=== PATIENT | female | born 1980 | race Hispanic/Latino ===

== ENCOUNTER → 2018-02-21 | Day surgery (SDC) | payer OTHER ==
[2018-02-12 10:33] LABS: BASOPHILS # (AUTO) 0.1 (0.0-0.1); EOSINOPHILS # (AUTO) 0.2 (0.0-0.4); EOSINOPHILS % 2.3 % (0.0-6.0); HEMATOCRIT 42.9 % (34.2-44.1); LYMPHOCYTES # (AUTO) 2.4 (1.0-3.2); LYMPHOCYTES % 33.9 % (18.0-39.1); MEAN CORPUSCULAR HEMOGLOBIN 30.6 pg (28-32); MEAN CORPUSCULAR VOLUME 87.6 fL (81-99); MONOCYTES # (AUTO) 0.7 (0.2-0.8); MONOCYTES % 9.1 % (4.4-11.3); NEUTROPHILS # (AUTO) 3.8 (2.1-6.9); NEUTROPHILS % 53.4 % (38.7-80.0); PLATELET COUNT 296 x10e3/uL (140-360)
[~2018-02-21] MED LIST: ACETAMINOPHEN/CODEINE 300MG - 30MG TAB ONE; BUPIVACAINE 0.25%/EPI 30ML SDV INJ ONE; DEXAMETHASONE SOD PHOS INJ 4 MG/ML VIAL ONE; EPHEDRINE SULFATE INJ 50 MG/10 ML SYR ONE; FENTANYL CITRATE/PF 100MCG/2 ML INJ ONE; GLYCOPYRROLATE INJ 1MG/ 5 ML SYR ONE; KETOROLAC TROMETHAMINE 30 MG/ML VIAL ONE; LEVOTHYROXINE75 MCG PO; LIDOCAINE HCL 2% LOCAL INJ 5 ML SDV VIAL INJ ONE; MIDAZOLAM HCL 2 MG/2 ML VIAL ONE; NEOSTIGMINE 5 MG/5ML SYR ONE; ONDANSETRON HCL INJ 2 MG/ML VIAL ONE; PHENYLEPHRINE HCL 1% 10 MG/ML VIAL ONE; PROPOFOL IV EMULSION 10 MG/ML 20 ML VIAL ONE; ROCURONIUM BROMIDE 10 MG/ML 5ML VIAL ONE; SEVOFLURANE INHAL SOLN 250 ML PEN BTL ONE; ZESTORETIC 20-1 EACH
--- NOTE | 2018-02-21 15:03 | Operative Report ---
DATE OF PROCEDURE: February 21, 2018 PREOPERATIVE DIAGNOSIS: Pelvic pain of right ovarian cyst. POSTOPERATIVE DIAGNOSIS: Pelvic pain of right ovarian cyst. OPERATIONS PERFORMED: 1. Laparoscopy. 2. Ablation of endometriosis. 3. Excision of right ovarian cyst. COMPLICATIONS: None. ESTIMATED BLOOD LOSS: Minimal. PROCEDURE: The patient was taken to the OR. General anesthesia was placed. She was prepped and draped in the normal sterile fashion and placed in the dorsal lithotomy position. After examination under anesthesia, a Hulka self-retaining uterine manipulator was passed through the cervix into the uterine cavity. Two Allis clamps were applied at the umbilicus. An infraumbilical skin incision was made with a scalpel, and a 10-mm bladeless trocar and cannula with the scope inside was passed through the abdominal wall into the abdominal cavity under direct visualization. Trocar was removed, and the abdomen was inflated with carbon dioxide gas and patient was placed in Trendelenburg position and the scope was slid through the sleeve into the abdominal cavity. Good visualization of the pelvis showed normal uterus, left tube and ovary. Right ovary showed a 4 or 5 cm ovarian cyst. Endometriosis was scattered throughout the posterior leaflet of the broad ligament, and 2 other ports were made in the right side of the abdomen after making a 5-mm skin incision with the scalpel, and a 5-mm bladeless trocar and cannula was introduced inside the abdominal cavity under direct visualization. The trocar was removed with a grasper, and with good visualization and the ball-tipped cautery the ablation of endometriosis was performed. The right ovarian cyst was excised using the LigaSure instrument. The bed of the ovary on the right side was cauterized with the ball-tipped cautery to achieve hemostasis. Suction irrigation of the peritoneal cavity with warm saline was performed. Instruments were removed from the abdomen. The abdomen was deflated. The rectus fascia at the umbilicus was reapproximated using Vicryl 0, and the skin was closed with Dermabond. Patient tolerated the procedure well. Lap, instrument and needle count was correct x2 at the end of the procedure. Job#: [id number] EV
--- OUTSIDE RECORDS SUMMARY | 2018-04-12 01:59 | XMS REPORT | Summary of Care ---
Author Author REMIGIO CARDONA M.D. 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 Active Levothyroxine Sodium TABS * Refills: 0 R.N. Active Allergies and Adverse Reactions Name Dates Details No Known Drug Allergies (Allergy) Status: Active Past Medical History Name Dates Details History of hypertension (V12.59, Z86.79) Status: Resolved History of thyroid disease (V12.29, Z86.39) Status: Resolved Procedures Procedure Dates Details [QL] THYROID PANEL Date: 14-Nov-2017 History of Bladder surgery Completed Immunization Name Dates Details Immunizations not documented Family History Name Dates Details No significant family history Comments: Family History Status: Active Social History Name Dates Details - Status: Name Dates Details Never smoker Vital Signs Date Test Result Details :07 BP Systolic 154 mm[Hg] Status: BP Diastolic 98 mm[Hg] Status: Height 60 in Status: Weight 144.5 lb Status: Body Mass Index Calculated 28.22 kg/m2 Status: Body Surface Area Calculated 1.63 m2 Status: Heart Rate 73 /min Status: Results Date Description Value Details :44 [LH] Thyroid Antibodies Thyroglobulin Antibody 18 {IU/ml} Range: <=60 Thyroid Peroxidase (TPO) Antibody <28 {IU/ml} Range: <=60 [id number] US Thyroid 34204 Thyroid US SEE NOTES Comments: EXAM:Thyroid ultrasound.CLINICAL HX: E03.9 Hypothyroidism, unspecified - E03.9 Hypothyroidism, unspecified. Age : 37 years.Gender: Female.TECHNIQUE:Grayscale and doppler sonogram of the thyroid gland.COMPARISON:Thyroid ultrasound: None.FINDINGS:Thyroid gland measurements:-- Right lobe: 4.7 x 1.3 x 1.1 cm.-- Left lobe: 4.4 x 1.2 x 1.3 cm. -- Isthmus: 0.2 cm.Thyroid gland parenchyma:-- Size: Within normal limits.-- Echotexture: Homogeneous.-- Vascularity: Within normal limits.Thyroid nodule(s) : None. Lymph node(s): No visualized suspicious lymphadenopathy.Other: None.IMPRESSION:1. Unremarkable thyroid ultrasound. Note: Thyroid Nodule Management Recommendations per ACR TI-RADS-- No f/u or FNA recommended for: -- Cystic nodules. -- Spongiform nodules. -- Mixed cystic and solid, iso/hyperechoic nodules w/o othersuspicious features. -- <1.5 cm solid, iso/hyperechoic nodules w/o other suspiciousfeatures. -- <1 cm solid, hypoechoic nodules w/o other suspicious features. - - <0.5 cm nodules.-- Additional recommendations: -- </=2 nodules should be biopsied. -- </=4 nodules should be followed. Reference: Zack CAO, et al. ACR Thyroid Imaging , Reporting and Data System(TI-RADS): White Paper of the ACR TI-RADS Committee. JACR. 2017; 14(5):587-595.--Read by: Bryan Arellano MDDictated Date/ time: 11/22/17 16:43Electronically Signed by: Bryan Arellano MD 11/22/1816:27FINAL REPORT Plan of Care Name Dates Details Planned Observations Planned Goals not documented Instructions Name Dates Details Instructions not documented Encounters Appointment; REMIGIO CARDONA M.D. Encounter Diagnosis: Problem not documented On: 14-Nov-2017 8:45
== END | disposition home or self-care (01) ==
LOC: OR 10:23
PROVIDERS: ATTEND Obstetrics & Gynecology
DX: N83.11 Corpus luteum cyst of right ovary (principal); N83.291 Other ovarian cyst, right side; I10 Essential (primary) hypertension; Z01.810 Encounter for preprocedural cardiovascular examination; Z01.812 Encounter for preprocedural laboratory examination
CPT/HCPCS: 36415; 58662; 81025; 84702; 85025; 88305; 93005; J1100; J1885; J2001; J2250; J2370; J2405; J3490; 88304